=== PATIENT | male | born 1965 | race Caucasian/White ===

== ENCOUNTER → 2023-08-20 13:25 | Outpatient (CLI) | payer OTHER, SELFPAY ==
--- NOTE | ~2023-08-20 | MR_ITS ---
EXAMINATION: MR brain/brain stem wo con DATE: 08/20/2023 14:00 INDICATION: Headache. TECHNIQUE: Magnetic resonance imaging (MRI) of the brain and brainstem was performed without intraven ous contrast. COMPARISON: None. FINDINGS: There are scattered areas of nonspecific increased T2-weighted signal intensity in the cere bral white matter, which is within normal limits for the patient's age. There is no intracranial hemo rrhage, acute infarction, or abnormal intracranial mass lesion. The ventricles are normal in size. Th e orbits are normal. The paranasal sinuses are clear. The mastoid air cells are normal. IMPRESSION: 1. Normal aging brain. Reviewed, dictated and finalized at location E. IMPRESSION: 1. Normal aging brain.
== END ==
PROVIDERS: PCP Internal Medicine; Visit Provider Internal Medicine
DX: R51.9 Headache, unspecified (principal)
CPT/HCPCS: 70551

== ENCOUNTER 2023-11-02 22:23 | Emergency (ER) | payer OTHER, SELFPAY ==
--- NOTE | ~2023-11-02 | CT_ITS ---
CT of the Abdomen and Pelvis: Indication: Umbilical pain Technique: 2.5 mm axial scans were obtained through the abdomen and pelvis following intravenous adm inistration of 100 cc of Omnipaque 350. Dose reduction technique was used on this scan by utilizing a utomated exposure control and iterative reconstruction technique. The dose-length product (DLP) was 5 78.57 mGy-cm. Findings: Scans through the lung bases are unremarkable. The liver, spleen, pancreas, gallbladder, adrenals and kidneys are within normal limits. No evidence of aortic aneurysm. No lymphadenopathy. There is wall thickening and pericolonic inflammatory change involving the mid sigmoid colon, most li adebayo diverticulitis. There is phlegmonous change without true abscess. No free air. Images through the pelvis were performed. Urinary bladder unremarkable. Prostate gland enlarged. No a scites. Impression: Acute sigmoid diverticulitis with pericolonic phlegmonous change. No abscess or free air. Reviewed, dictated and finalized at [facility]. [facility] Impression: Acute sigmoid diverticulitis with pericolonic phlegmonous change. No abscess or free air.
[2023-11-02 22:27] VITALS: BP 110/68; PULSE 79; RESP 16; TEMP 37.4; O2SAT 97
[2023-11-02 22:43] LABS: Basophils Percent Auto 0.1 % (0.2-1.2); Eosinophils Percent Auto 0.1 % (0-4.4); Hematocrit 43.5 % (42.0-52.0); Hemoglobin 14.4 g/dL (14.0-18.0); Immature Granulocyte Absolute 0.08 K/mm3 (0.00-0.031); Immature Granulocyte Percent A 0.5 % (0-0.5); Lymphocytes Absolute Auto 1.41 K/mm3 (0.9-3.2); Lymphocytes Percent Auto 9.4 % (18.3-44.2); Mean Corpuscular HGB Conc 33.1 g/dl (32-36); Mean Corpuscular Hemoglobin 31.2 pg (26-34); Mean Corpuscular Volume 94.4 fl (80-100); Mean Platelet Volume 8.8 fl (7.4-10.4); Monocytes Absolute Auto 1.1 K/mm3 (0.1-0.6); Monocytes Percent Auto 7.6 % (2.6-8.5); Neutrophils Absolute Auto 12.3 K/mm3 (1.3-6.7); Neutrophils Percent Auto 82.3 % (45.5-73.1); Platelet Count Result 211 k/mm3 (150-375); Red Blood Count 4.61 M/mm3 (4.6-6.20); Red Cell Distribution Width 12.2 % (11.5-14.5)
[2023-11-02 22:44] LABS: Appearance Urine Clear (Clear); Bilirubin Urine Negative (Negative); Blood Urine Negative (Negative); Color Urine Yellow (Yellow); Glucose Urine UA Negative (Negative); Ketones Urine Negative (Negative); Leukocyte Esterase Ur Negative LEU/UL (Negative); Nitrate Urine Negative (Negative); Protein Urine Negative (Negative); Specific Grav Ur 1.006 (1.001-1.035)
[2023-11-02 22:53] LABS: Alanine Aminotransferase 18 U/L (6-50); Albumin Level 4.4 g/dL (3.5-5.1); Alkaline Phosphatase 81 U/L (38-126); Anion Gap 10 mmol/L (8-16); Aspartate Amino Transferase 26 U/L (17-59); Bilirubin,Total 1.4 mg/dL (0.2-1.3); Blood Urea Nitrogen 17 mg/dL (9-20); Calcium 9.1 mg/dL (8.4-10.2); Carbon Dioxide 24 mmol/L (22-30); Chloride 100 mmol/L (98-107); Estimated CRCL calculation 75 ml/min; Estimated Glomerular Filt Rate > 60; Glucose 114 mg/dL (65-110); Lipase 60 U/L (23-300); Potassium 4.1 mmol/L (3.4-5.0); Sodium 134 mmol/L (137-145)
[2023-11-02 23:44] LABS: Add Urine Microscopic? NO
[2023-11-03 00:14] LABS: Influenza A QL RT-PCR Negative (Negative); Influenza B QL RT-PCR Negative (Negative); RSV RNA, RT-PCR Negative (Negative); SARS-CoV-2 RNA PCR Negative (Negative)
[2023-11-03] MEDS: SODIUM CHLORIDE 0.9% IV 2,000 ML 999 ML IV CONT (01:45)
[2023-11-03] MEDS: HYDROmorphone HCL INJ (*CRX) 1 MG/ML SYR 0.5 MG IV PUSH (01:46)
[2023-11-03] MEDS: KETOROLAC 15 MG/ML VIAL (*BKC) IV PUSH (01:46)
--- NOTE | 2023-11-03 01:50 | ED.GENADULT ---
HPI - General Adult General Chief complaint: Abdominal Pain Stated complaint: abd pain for 24 hours, fever Time Seen by Provider: 11/03/23 01:17 History of Present Illness HPI narrative: this is a 58-year-old male presenting with 2 days of abdominal pain and fever. Patient says the pain started yesterday around 5:00 p.m.. It is an achy pain located just below his belly button. It is nonradiating 5 out 10 in intensity and constant. He relates this to diverticulitis which he last had in 2018. He has had decreased oral appetite and fevers of 103. His last bowel movement was earlier today and it was mixed with mucus. Related Data Allergies Allergy/AdvReac Type Severity Reaction Status Date / Time No Known Allergies Allergy Verified 11/03/23 01:32 [facility] Past Medical History Medical History Diverticulitis Family History Family History Mother Carcinoma of colon Social History Social History Smoking status: Never smoker Alcohol intake: current Exam Narrative: APPEARANCE: No apparent distress. Head: atraumatic. EYES: EOMI, NOSE: Atraumatic NECK: Trachea midline RESPIRATORY: No increased rate of breathing CARDIOVASCULAR: RRR, ABDOMINAL: Tenderness to palpation below the umbilicus, the rest of the abdomen is soft nontender no guarding or rebound MUSCULOSKELETAL: No obvious deformities NEURO: Alert. Moving 4/4 extremities SKIN:: Warm, dry. Normal color PSYCHIATRIC: Normal affect Course Vital Signs Vital signs: Vital Signs Temperature 99.4 F 11/02/23 22:27 Pulse Rate 79 11/02/23 22:27 Respiratory Rate 16 11/02/23 22:27 Blood Pressure 110/68 11/02/23 22:27 Pulse Oximetry 97 11/02/23 22:27 Oxygen Delivery Room Air 11/02/23 22:27 Temperature 99.4 F 11/02/23 22:27 Pulse Rate 57 L 11/03/23 01:53 Respiratory Rate 15 11/03/23 01:53 Blood Pressure 106/69 11/03/23 01:53 Pulse Oximetry 98 11/03/23 01:53 Oxygen Delivery Room Air 11/02/23 22:27 Medical Decision Making MDM Narrative Medical decision making narrative: -Course: 58-year-old male presents 2 days of abdominal pain. White count elevated 15. CT showed uncomplicated diverticulitis. Patient pain was controlled ED. Vital signs are stable. patient still has some abdominal tenderness but is tolerating p.o.. Patient will be discharged with antibiotics, pain medication antiemetics. Patient given return precautions. 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 Urine not indicative infection. Viral swabs negative. -Interventions: 2 L normal saline, 0.5 mg Dilaudid, 15 mg Toradol, augmentin -Shared decision making / Disposition: Discharged -RX Augmentin, Motrin, Tylenol, oxycodone, Zofran Vital Signs Vital Signs: Vital Signs Temperature 99.4 F 11/02/23 22:27 Pulse Rate 79 11/02/23 22:27 Respiratory Rate 16 11/02/23 22:27 Blood Pressure 110/68 11/02/23 22:27 Pulse Oximetry 97 11/02/23 22:27 Oxygen Delivery Room Air 11/02/23 22:27 Temperature 99.4 F 11/02/23 22:27 Pulse Rate 57 L 11/03/23 01:53 Respiratory Rate 15 11/03/23 01:53 Blood Pressure 106/69 11/03/23 01:53 Pulse Oximetry 98 11/03/23 01:53 Oxygen Delivery Room Air 11/02/23 22:27 Lab Data 11/02/23 22:36 11/02/23 22:36 Labs: Lab Results 11/02/23 11/02/23 Range/Units 22:36 23:00 WBC 15.0 H (4.5-10.0) K/mm3 RBC 4.61 (4.6-6.20) M/mm3 Hgb 14.4 (14.0-18.0) g/dL Hct 43.5 (42.0-52.0) % MCV 94.4 (80-100) fl MCH 31.2 (26-34)
[2023-11-03 01:53] VITALS: BP 106/69; PULSE 57; RESP 15; O2SAT 98
[2023-11-03] MEDS: AMOXICILLIN/CLAVULANATE K 875-125 MG TAB 1 TABLET PO (05:32)
[2023-11-03 05:37] VITALS: BP 134/66; PULSE 61; RESP 15; O2SAT 98
== END 2023-11-03 05:38 | disposition home or self-care (01) ==
PROVIDERS: Emergency Provider Emergency Medicine; PCP Internal Medicine
DX: K57.32 Diverticulitis of large intestine without perforation or abscess without bleeding (principal)
CPT/HCPCS: 36415; 74177; 80053; 81003; 83690; 85025; 87637; 96361; 96374; 96375; 99284; A9270; J1170; J1885; J7030; Q9967

== ENCOUNTER 2024-02-25 08:54 | Outpatient (CLI) | payer OTHER, SELFPAY ==
--- NOTE | ~2024-02-25 | CT_ITS ---
EXAMINATION: CT abdomen pelvis w con DATE: 02/25/2024 12:00 INDICATION: Low abdominal pain. TECHNIQUE: Computed tomography (CT) of the abdomen and pelvis was performed with 100 mL Omnipaque 350 intravenous contrast. Automated exposure control and iterative reconstruction technique were employe d. The dose-length product was 442.74 mGy-cm. COMPARISON: CT abdomen pelvis 11/03/2023 FINDINGS: The visualized portions of the lung bases are clear without pneumonia or pleural effusion. The heart size is normal. No pericardial effusion. The liver, gallbladder, spleen, pancreas, adrenal glands, and left kidney are normal. There is a 9 mm cyst in right kidney. The prostate is mildly enla rged. There is a right inguinal hernia containing fat. There is diverticulosis of the colon without e vidence of diverticulitis. There are no dilated loops of bowel. The appendix is normal. There are no pathologically enlarged lymph nodes. There is no free intraperitoneal fluid. There is mild lumbar spo ndylosis. IMPRESSION: 1. Right inguinal hernia containing fat. Reviewed, dictated and finalized at location A.
[2024-02-25 09:13] LABS: Basophils Absolute Auto 0.02 K/mm3 (0.00-0.10); Basophils Percent Auto 0.3 % (0.0-1.0); Eosinophils Absolute Auto 0.04 K/mm3 (0.02-0.50); Eosinophils Percent Auto 0.6 % (1.0-6.0); Hematocrit 44.2 % (40.0-54.0); Hemoglobin 14.9 g/dL (14.0-18.0); Immature Granulocyte Absolute 0.02 K/mm3 (0.00-0.00); Immature Granulocyte Percent A 0.3 % (0.0-0.0); Lymphocytes Absolute Auto 1.02 K/mm3 (1.10-4.50); Lymphocytes Percent Auto 15.8 % (18.0-42.0); Mean Corpuscular HGB Conc 33.7 g/dL (32-36); Mean Corpuscular Hemoglobin 31.2 pg (27.0-31.0); Mean Corpuscular Volume 92.7 fL (78.0-102.0); Mean Platelet Volume 8.9 fl (8.7-11.0); Monocytes Absolute Auto 0.62 K/mm3 (0.10-0.90); Monocytes Percent Auto 9.6 % (2.0-11.0); Neutrophils Absolute Auto 4.73 K/mm3 (1.70-7.20); Neutrophils Percent Auto 73.4 % (50.0-70.0); Platelet Count Result 209 K/mm3 (150-420); Red Blood Count 4.77 M/mm3 (4.70-6.10); White Blood Count 6.5 K/mm3 (4.8-10.8)
[2024-02-25 09:14] LABS: Appearance Urine Clear (Clear); Bilirubin Urine Negative (Negative); Blood Urine Negative (Negative); Color Urine Light Yellow (Yellow); Glucose Urine UA Negative (Negative); Ketones Urine Negative (Negative); Leukocyte Esterase Ur Negative (Negative); Nitrate Urine Negative (Negative); Protein Urine Negative (Negative); Urobilinogen Urine 0.2 mg/dL (0.2-1.0)
[2024-02-25 09:17] LABS: Add Urine Microscopic? NO
[2024-02-25 09:35] LABS: Alanine Aminotransferase 30 U/L (16-63); Albumin Level 3.8 g/dL (3.4-5.0); Alkaline Phosphatase 71 U/L (46-116); Anion Gap 6 mmol/L (4-12); Aspartate Amino Transferase 22 U/L (15-37); Bilirubin,Total 0.7 mg/dL (0.00-1.00); Blood Urea Nitrogen 22 mg/dL (7-18); Calcium 8.8 mg/dL (8.5-10.1); Carbon Dioxide 31 mmol/L (21-32); Chloride 105 mmol/L (98-108); Estimated Glomerular Filt Rate > 60; Glucose 105 mg/dL (70-99); Osmolality Calculated 297 mOsm/kg (285-295); Potassium 4.5 mmol/L (3.5-5.1); Sodium 142 mmol/L (136-145); Total Protein 6.9 g/dL (6.4-8.2)
== END 2024-02-25 08:55 | disposition home or self-care (01) ==
PROVIDERS: PCP Internal Medicine; Visit Provider Nurse Practitioner Family
DX: R10.9 Unspecified abdominal pain (principal); K57.92 Diverticulitis of intestine, part unspecified, without perforation or abscess without bleeding; K59.00 Constipation, unspecified; K40.90 Unilateral inguinal hernia, without obstruction or gangrene, not specified as recurrent
CPT/HCPCS: 36415; 74177; 80053; 81003; 85025; 87086; Q9967